=== PATIENT | male | born 1930 | race Caucasian/White ===

== ENCOUNTER 2021-12-08 09:42 | Inpatient (IN) | payer MEDICARE, BC ==
[2021-12-08 10:49] LABS: Hemoglobin 13.6 g/dL (13.5-17.5); Mean Corpuscular HGB CONC 31.9 g/dL (32.0-36.0); Mean Corpuscular Hemoglobin 28.6 pg (27.0-33.0); Mean Corpuscular Volume 89.7 fl (81.2-95.1); Mean Platelet Volume 12.7 fl (7.4-10.4); Platelet Count 95 10x3/uL (150-450); RBC Distribution Width 21.1 % (11.5-14.5); Red Blood Cell (RBC) Count 4.76 10x6/uL (4.32-5.72); White Blood Cell (WBC) Count 9.1 10x3/uL (3.5-10.5)
[2021-12-08] MEDS ORDERED: Cefepime 2 GM VIAL ONE (10:49)
[2021-12-08 10:50] LABS: MDiff Complete? YES
[2021-12-08 10:54] LABS: ALT (SGPT) 27 U/L (8-55); AST (SGOT) 28 U/L (5-34); Albumin 3.4 g/dL (3.4-4.8); Alkaline Phosphatase 75 U/L (40-110); Anion Gap 16 mmol/L (10-20); BUN (Urea Nitrogen) 63 mg/dL (8.4-25.7); Bilirubin, Total 1.1 mg/dL (0.2-1.2); CK (CPK) 74 U/L (30-200); Calc. Creatinine Clearance 0 mL/min (70-130); Calcium 9.7 mg/dL (7.8-10.44); Carbon Dioxide 26 mmol/L (23-31); Chloride 108 mmol/L (98-107); Estimated GFR 40; Globulin 2.9 g/dL (2.4-3.5); Glucose 164 mg/dL (83-110); Lipase 37 U/L (8-78); Magnesium 2.1 mg/dL (1.6-2.6); Potassium 4.1 mmol/L (3.5-5.1); Protein, Total 6.3 g/dL (5.8-8.1); Sodium 146 mmol/L (136-145)
[2021-12-08 10:57] LABS: Bilirubin Neg (Negative); Blood, Urine 50 (Negative); Clarity Cloudy (Clear); Glucose, Urine (Dipstick) Normal (Negative); Ketone, Urine Negative (Negative); Leukocyte 500 (Negative); Nitrite Negative (Negative); Protein, Urine (Dipstick) 100 mg/dl (Neg-Trace); Urobilinogen Normal mg/dL (Less than 2)
[2021-12-08 10:59] LABS: PTT 44.2 sec (22.0-33.0)
[2021-12-08 11:09] LABS: Actual Bicarbonate (HCO3a) 24.8 mEq/L (22-28); Base Excess (BEa) -1.3 mEq/L (-2.0 to +3.0); CO2 Tension 46.4 mmHg (35.0-45.0); Calcium, Ionized (arterial) 1.23 mmol/L (1.12-1.30); Hemoglobin (Hb) 14.1 g/dL (14.0-18.0); O2 Tension (PaO2), arterial 81.8 mmHg (> 60.0); Potassium - ABG Lab 3.8 mmol/L (3.70-5.30); Puncture Site LBA; pH, Arterial 7.35 (7.35-7.45)
[2021-12-08 11:13] LABS: Lymphocytes 6 % (21-51); Monocytes 3 % (0-10); Neutrophil 91 % (42-75)
[2021-12-08 11:15] LABS: Anisocytosis SLIGHT = 6-15 cells (100X) (0-5/hpf); Large Platelets SLIGHT; Platelet Morphology Comment Appears Decreased
[2021-12-08 11:24] LABS: Squamous Epithelial 0-3 HPF (0-3); WBC/HPF Greater Than 50 HPF (0-3)
[2021-12-08 11:25] LABS: Bacteria/HPF 3+ HPF (None Seen)
[2021-12-08 13:17] LABS: SARS-CoV-2 NAA Rapid Test DETECTED (NotDetected)
[2021-12-08 13:25] LABS: Lactic Acid 1.2 mmol/L (0.5-2.2)
[2021-12-08 13:45] LABS: Troponin I 0.026 ng/mL (< 0.028)
[2021-12-08] MEDS ORDERED: Guaifenesin DM 100-10/5 ML UDCUP PO PRN (15:45)
[2021-12-08] MEDS ORDERED: Bisacodyl 5 MG TAB PO PRN (15:45)
[2021-12-08] MEDS ORDERED: Senokot S 8.6-50 MG TAB PO PRN (15:45)
[2021-12-08] MEDS ORDERED: Ondansetron ODT 4 MG TAB PO PRN (15:45)
[2021-12-08] MEDS ORDERED: Ondansetron PF 4 MG/2 ML Vial IVP PRN (15:45)
[2021-12-08] MEDS ORDERED: Acetaminophen 650 MG Suppository PR PRN (15:45)
[2021-12-08] MEDS ORDERED: Acetaminophen 325 MG TAB PO PRN (15:45)
[2021-12-08 16:57] LABS: Troponin I 0.027 ng/mL (< 0.028)
[2021-12-08] MEDS ORDERED: Sodium Chloride 0.45% 1,000 ML IV SCH (17:30)
[2021-12-08] MEDS ORDERED: Levothyroxine Sodium 100 MCG TAB PO SCH (17:45)
[2021-12-08] MEDS: Cefepime 2 GM in Sodium Chloride 0.9% 100 ML IVPB SCH (19:56)
[2021-12-08] MEDS ORDERED: VANCOMYCIN 1.25 GM/250 ML BAG 1.25 GM in Premix Bag 1 BAG IVPB SCH (20:00)
[2021-12-08] MEDS ORDERED: Vancomycin 1.5 GRAM/300 ML BAG 1.5 GM in Premix Bag 1 BAG IVPB SCH (20:00)
[2021-12-08] MEDS ORDERED: Furosemide 40 MG/4 ML VIAL SLOW IVP SCH (20:30)
[2021-12-09] MEDS ORDERED: Morphine 2 MG/ML VIAL SLOW IVP SCH (02:30)
[2021-12-09 04:43] LABS: #Monocytes 0.6 10x3/uL (0.0-1.1); #Neutrophils 9.7 10x3/uL (1.5-8.4); %Basophils 0.1 % (0.0-2.0); %Lymphocytes 4.8 % (18.0-47.0); %Monocytes 5.5 % (0.0-10.0); %Neutrophils 89.1 % (40.0-75.0); Hemoglobin 13.7 g/dL (13.5-17.5); Mean Corpuscular HGB CONC 32.3 g/dL (32.0-36.0); Mean Corpuscular Volume 89.8 fl (81.2-95.1); Platelet Count 79 10x3/uL (150-450); RBC Distribution Width 21.1 % (11.5-14.5); Red Blood Cell (RBC) Count 4.72 10x6/uL (4.32-5.72); White Blood Cell (WBC) Count 10.9 10x3/uL (3.5-10.5)
[2021-12-09 04:54] LABS: Anion Gap 18 mmol/L (10-20); BUN (Urea Nitrogen) 62 mg/dL (8.4-25.7); Calc. Creatinine Clearance 58 mL/min (70-130); Carbon Dioxide 23 mmol/L (23-31); Chloride 111 mmol/L (98-107); Estimated GFR 43; Glucose 114 mg/dL (83-110); Potassium 4.4 mmol/L (3.5-5.1); Sodium 148 mmol/L (136-145)
[2021-12-09 05:36] LABS: Prothrombin Time 47.1 sec (9.5-12.1)
[2021-12-09 05:46] LABS: INR-International Normal Ratio 4.7
[2021-12-09] MEDS: Furosemide 40 MG/4 ML VIAL SLOW IVP SCH ×2 (05:47→14:54)
[2021-12-09] MEDS ORDERED: Levothyroxine Sodium 100 MCG TAB PO SCH (06:00)
[2021-12-09] MEDS: Albuterol 200 PUFF (6.7GM INHALER) INH SCH ×2 (07:34→13:32)
[2021-12-09] MEDS: Cefepime 2 GM in Sodium Chloride 0.9% 100 ML IVPB SCH (08:18)
[2021-12-09] MEDS ORDERED: Dextrose 50% Abboject 50 ML SYRINGE ONE (11:52)
[2021-12-09 14:28] VITALS: BMI 34.7
[2021-12-09 16:05] VITALS: BP 131/63; TEMP 97.9
[2021-12-09] MEDS ORDERED: Vancomycin HCl 1 GM in Sodium Chloride 0.9% 250 ML 250 ML IVPB SCH (20:00)
== END 2021-12-09 16:15 | disposition hospice, inpatient (51) | DRG 871 ==
LOC: CSHERS 09:42 → CSHTELE 17:42
PROVIDERS: ADMIT Family Medicine; ATTEND Family Medicine
PROC: 3E03329 Introduction of Other Anti-infective into Peripheral Vein, Percutaneous Approach (ICD-10-PCS; principal; 2021-12-08)
PROC: 8E0ZXY6 Isolation (ICD-10-PCS; 2021-12-08)
DX: A41.9 Sepsis, unspecified organism (principal); U07.1 COVID-19; G93.41 Metabolic encephalopathy; I50.22 Chronic systolic (congestive) heart failure; I13.0 Hypertensive heart and chronic kidney disease with heart failure and stage 1 through stage 4 chronic kidney disease, or unspecified chronic kidney disease; E87.0 Hyperosmolality and hypernatremia; N39.0 Urinary tract infection, site not specified; Z51.5 Encounter for palliative care; Z66 Do not resuscitate; E03.9 Hypothyroidism, unspecified; E11.51 Type 2 diabetes mellitus with diabetic peripheral angiopathy without gangrene; I48.0 Paroxysmal atrial fibrillation; N32.81 Overactive bladder; N18.30 Chronic kidney disease, stage 3 unspecified; E78.5 Hyperlipidemia, unspecified; Z60.2 Problems related to living alone; E11.22 Type 2 diabetes mellitus with diabetic chronic kidney disease; Z95.810 Presence of automatic (implantable) cardiac defibrillator; Z79.01 Long term (current) use of anticoagulants; Z79.899 Other long term (current) drug therapy; Z79.84 Long term (current) use of oral hypoglycemic drugs; Z79.02 Long term (current) use of antithrombotics/antiplatelets; Z80.9 Family history of malignant neoplasm, unspecified; S09.90XA Unspecified injury of head, initial encounter; Z87.891 Personal history of nicotine dependence; W18.30XA Fall on same level, unspecified, initial encounter
CPT/HCPCS: 36415; 36416; 36600; 51701; 70450; 71045; 72125; 72131; 80048; 80053; 81003; 81015; 82550; 82805; 83605; 83690; 83735; 83880; 84439; 84443; 84484; 85025; 85610; 85730; 87040; 87077; 87086; 87186; 93005; 94760; J0692; J1940; J2270; J3370; J3490; J7999; U0002

== ENCOUNTER 2021-12-09 18:10 | Inpatient (IN) | payer OTHER ==
[2021-12-09] MEDS ORDERED: Bisacodyl 10 MG SUPP PR PRN (18:28)
[2021-12-09] MEDS ORDERED: Scopolamine 1.5 mg/72 hour Patch TOP PRN (18:30)
[2021-12-09] MEDS ORDERED: Haloperidol Lactate 5 MG/ML VIAL SLOW IVP PRN (18:30)
[2021-12-09] MEDS ORDERED: diphenhydrAMINE 50 MG/ML VIAL IVP PRN (18:30)
[2021-12-09] MEDS ORDERED: Hyoscyamine Sulfate SL 0.125 mg Tablet SL PRN (18:30)
[2021-12-09] MEDS ORDERED: Promethazine HCl 25 MG SUPP PR PRN (18:30)
[2021-12-09] MEDS ORDERED: Ondansetron PF 4 MG/2 ML Vial IVP PRN (18:30)
[2021-12-09] MEDS ORDERED: Acetaminophen 650 MG Suppository PR PRN (18:30)
[2021-12-09 21:22] VITALS: BMI 34.7
[2021-12-09] MEDS: Morphine 2 MG/ML VIAL SLOW IVP PRN ×2 (21:29→23:00)
[2021-12-09] MEDS: Lorazepam 2 MG/ML VIAL SLOW IVP PRN (21:30)
[2021-12-09 22:14] VITALS: BP 140/70; TEMP 97.4
[2021-12-10] MEDS: Morphine 2 MG/ML VIAL SLOW IVP PRN ×2 (00:11→01:22)
[2021-12-10] MEDS: Lorazepam 2 MG/ML VIAL SLOW IVP PRN (01:22)
== END 2021-12-10 03:03 | disposition expired | DRG 951 ==
LOC: CSHTELE 18:10
PROVIDERS: ADMIT Family Medicine; ATTEND Family Medicine
DX: Z51.5 Encounter for palliative care (principal); A41.9 Sepsis, unspecified organism; U07.1 COVID-19; G93.41 Metabolic encephalopathy; I50.20 Unspecified systolic (congestive) heart failure; E87.0 Hyperosmolality and hypernatremia; I13.0 Hypertensive heart and chronic kidney disease with heart failure and stage 1 through stage 4 chronic kidney disease, or unspecified chronic kidney disease; N39.0 Urinary tract infection, site not specified; I48.91 Unspecified atrial fibrillation; E03.9 Hypothyroidism, unspecified; E11.51 Type 2 diabetes mellitus with diabetic peripheral angiopathy without gangrene; E78.5 Hyperlipidemia, unspecified; N18.30 Chronic kidney disease, stage 3 unspecified; E11.22 Type 2 diabetes mellitus with diabetic chronic kidney disease; Z91.81 History of falling
CPT/HCPCS: J2060; J2270